=== PATIENT | female | born 1955 | race Caucasian/White ===

== ENCOUNTER 2017-02-15 14:45 | Inpatient (IN) | payer BC ==
--- NOTE | ~2017-02-15 | HP ---
History And Physical [id number] [place]. [address] NAME: KAYCE WILLIAM : 51 STATUS : DIS IN PAT#: [id number] AGE: 62 ADM/REG DATE : 02/15/17 MR#: [id number] REPORT SERV DATE: 02/17/17 DICTATED BY: NERY MORRISON JR. DATE: 02/15/17 REPORT STATUS : Draft TRANSCRIBED BY: ROSSI DATE: 02/15/17 DATE OF ADMISSION: 02/15/2017 CHIEF COMPLAINT: Chest pain and shortness of breath. HISTORY OF PRESENT ILLNESS: Kayce is a 62-year-old white female smoker with paroxysmal atrial fibrillation and hypertension. She developed neck and jaw pain this morning. She developed precordial chest discomfort this afternoon that was quite severe while in her car and she actually called EMS from her car. In the field, a 12-lead EKG was done showing inferior posterior myocardial infarction, consistent with STEMI and code STEMI protocol was implemented. On arrival, the patient had 8/10 chest pain, respirations at 30 times a minute, and appeared in acute distress. PAST MEDICAL HISTORY: Includes hypertension and paroxysmal atrial fibrillation. She does not take anticoagulation for this. She believes her last episode was 30 days ago. She denies diabetes, prior TIA, or stroke. She denies renal insufficiency. ALLERGIES: DENIED. CURRENT MEDICATIONS: Include atenolol and lisinopril. SOCIAL HISTORY: The patient is a pack-a-day smoker. She denies alcohol or recreational drug abuse. FAMILY HISTORY: Significant for midlife vascular events in parents. REVIEW OF SYSTEMS: Limited secondary to clinical state. She denies fever chills, bleeding diathesis, changes in bowel or bladder habits. Remainder as in HPI or negative. PHYSICAL EXAMINATION: VITAL SIGNS: Blood pressure is 122/76, heart rate 72, and respirations 30. GENERAL: Middle-aged female who is in acute distress with acute anxiety and tachypnea. HEENT: Anicteric, no scleral injection, no oral lesions. NECK: No JVD, supple, no bruits. LUNGS: Clear to auscultation. No hyperexpansion. CARDIOVASCULAR: Regular rate and rhythm with no murmur, rub or gallop. ABDOMEN: Soft, nontender. Normoactive bowel sounds, no hepatosplenomegaly. EXTREMITIES: No clubbing, cyanosis or edema. SKIN: No visible rashes. NEURO/PSY: Normal affect, alert and oriented x 3. MEDICAL DECISION MAKIN. Acute inferior posterior LA. The patient will be brought to the cardiac catheterization laboratory for emergency coronary angiography and percutaneous intervention. The risks were verbalized and accepted, this is an emergency procedure. History And Physical [address] [address] NAME: KAYCE WILLIAM : 51 STATUS : DIS IN PAT#: [id number] AGE: 62 ADM/REG DATE : 02/15/17 MR#: [id number] REPORT SERV DATE: 02/17/17 DICTATED BY: NERY MORRISON JR. DATE: 02/15/17 REPORT STATUS : Draft TRANSCRIBED BY: ROSSI DATE: 02/15/17 2. Paroxysmal atrial fibrillation. The patient will need stroke prophylaxis. This will be instituted postoperatively. 3. Smoking cessation counseling was initiated. 4. Mixed hyperlipidemia. We will begin intensive statin therapy. 5. Hypertension. We will adjust medicines as needed during the hospital stay. IBRAHIMA/ROSSI Nery Morrison Jr., M.D. / [id number] CC: Marci Valero Jr., M.D.
[2017-02-15 15:46] LABS: BASOPHILS 0.4 %; BASOPHILS ABSOLUTE 0.04 10/3/uL (0.0-0.16); EOSINOPHILS 0.9 %; EOSINOPHILS ABSOLUTE 0.08 10/3/uL (0.0-0.53); HEMATOCRIT 36.1 % (36.0-48.0); HEMOGLOBIN 12.5 g/dL (12.0-16.0); IMMATURE GRANULOCYTES 0.3 %; IMMATURE GRANULOCYTES ABSOLUTE 0.03 10/3/uL (0.0-0.11); LYMPHOCYTES 27.8 %; LYMPHOCYTES ABSOLUTE 2.62 10/3/uL (0.67-4.30); MEAN CORPUS HGB CONC 34.6 g/dL (32.0-36.0); MEAN CORPUSCULAR HEMOGLOB 34.4 pg (26.0-34.0); MEAN CORPUSCULAR VOLUME 99.4 fL (80-100); MEAN PLATELET VOLUME 9.8 fL (9.2-13.0); MONOCYTES 5.7 %; MONOCYTES ABSOLUTE 0.54 10/3/uL (0.21-1.20); NEUTROPHILS 64.9 %; PLATELET COUNT 334 10/3/uL (150-400); RBC DISTRIBUTION WIDTH 13.4 % (12.0-16.0); RED CELL COUNT 3.63 10/6/uL (4.0-5.6); WHITE BLOOD CELLS 9.4 10/3/uL (4.5-10.5)
[2017-02-15 15:47] LABS: MANUAL DIFF NO %
[2017-02-15 15:52] LABS: INTERNATIONAL NORMAL RATI 1.2 UNITS (-); PROTIME (NOT ORD) 15.4 SEC (12.0-14.5)
[2017-02-15 16:00] LABS: BUN (BLOOD UREA NITROGEN) 21 MG/DL (6-23); CALCIUM, SERUM 7.9 MG/DL (8.5-10.4); CHEST PAIN PROFILE TAT 0 Hrs 24 Mins; CHLORIDE, SERUM 111 MMOL/L (96-112); CO2 (CARBON DIOXIDE) 20 MMOL/L (24-34); GFR AFRICAN AMERICAN 78 ML/MIN (>=60); GFR NON AFRICAN AMERICAN 68 ML/MIN (>=60); GLUCOSE, SERUM 107 MG/DL (60-99); POTASSIUM, SERUM 3.8 MMOL/L (3.5-5.3); SODIUM, SERUM 142 MMOL/L (135-148); TROPONIN I 0.03 NG/ML (<0.05)
[2017-02-15 16:07] LABS: PARTIAL THROMBO TIME > 150.0 SEC (22.5-37.2)
[2017-02-15 17:40] LABS: CPK 63 U/L (0-200)
[2017-02-15 17:41] LABS: CK-MB 1.9 NG/ML
[2017-02-15 17:42] LABS: TROPONIN I 0.27 NG/ML (<0.05)
[2017-02-15] MEDS ORDERED: ATEN25 PO (21:10)
[2017-02-15] MEDS ORDERED: AT25 PO (21:11)
[2017-02-15] MEDS ORDERED: ASAB PO (21:12)
[2017-02-15] MEDS ORDERED: PRIN20 PO (21:12)
[2017-02-16 00:10] LABS: CK-MB 19.6 NG/ML
[2017-02-16 00:12] LABS: CKMB INDEX (NOT ORD) 10.8
[2017-02-16 05:39] LABS: BASOPHILS 0.3 %; BASOPHILS ABSOLUTE 0.02 10/3/uL (0.0-0.16); EOSINOPHILS 2.7 %; HEMATOCRIT 34.1 % (36.0-48.0); HEMOGLOBIN 11.4 g/dL (12.0-16.0); IMMATURE GRANULOCYTES 0.3 %; IMMATURE GRANULOCYTES ABSOLUTE 0.02 10/3/uL (0.0-0.11); LYMPHOCYTES 32.5 %; LYMPHOCYTES ABSOLUTE 2.39 10/3/uL (0.67-4.30); MEAN CORPUS HGB CONC 33.4 g/dL (32.0-36.0); MEAN CORPUSCULAR HEMOGLOB 33.7 pg (26.0-34.0); MEAN CORPUSCULAR VOLUME 100.9 fL (80-100); MEAN PLATELET VOLUME 9.2 fL (9.2-13.0); MONOCYTES 8.8 %; MONOCYTES ABSOLUTE 0.65 10/3/uL (0.21-1.20); NEUTROPHILS 55.4 %; NEUTROPHILS ABSOLUTE 4.08 10/3/uL (2.02-8.40); PLATELET COUNT 278 10/3/uL (150-400); RBC DISTRIBUTION WIDTH 13.8 % (12.0-16.0); RED CELL COUNT 3.38 10/6/uL (4.0-5.6); WHITE BLOOD CELLS 7.4 10/3/uL (4.5-10.5)
[2017-02-16 05:42] LABS: MANUAL DIFF NO %
[2017-02-16 05:45] LABS: INTERNATIONAL NORMAL RATI 1.2 UNITS (-); PROTIME (NOT ORD) 14.9 SEC (12.0-14.5)
[2017-02-16 05:54] LABS: BUN (BLOOD UREA NITROGEN) 18 MG/DL (6-23); CALCIUM, SERUM 7.9 MG/DL (8.5-10.4); CHLORIDE, SERUM 112 MMOL/L (96-112); CHOLESTEROL 158 MG/DL (< 200); CO2 (CARBON DIOXIDE) 25 MMOL/L (24-34); CREATININE 0.86 MG/DL (0.55-1.02); GFR AFRICAN AMERICAN 83 ML/MIN (>=60); GFR NON AFRICAN AMERICAN 71 ML/MIN (>=60); GLUCOSE, SERUM 100 MG/DL (60-99); HDL CHOLESTEROL 53 MG/DL (> 49); LDL CHOLESTEROL 82 MG/DL (< 130); NON-HDL CHOLESTEROL 105 MG/DL (< 160); POTASSIUM, SERUM 4.1 MMOL/L (3.5-5.3); SODIUM, SERUM 143 MMOL/L (135-148); TRIGLYCERIDE 118 MG/DL (< 150)
[2017-02-16 08:09] LABS: CK-MB 25.1 NG/ML; CKMB INDEX (NOT ORD) 10.2; CPK 245 U/L (0-200)
[2017-02-16 17:34] LABS: CKMB INDEX (NOT ORD) 6.7
[2017-02-17 05:28] LABS: INTERNATIONAL NORMAL RATI 1.1 UNITS (-); PROTIME (NOT ORD) 14.2 SEC (12.0-14.5)
[2017-02-17 05:29] LABS: BASOPHILS 0.7 %; BASOPHILS ABSOLUTE 0.04 10/3/uL (0.0-0.16); EOSINOPHILS 5.1 %; EOSINOPHILS ABSOLUTE 0.28 10/3/uL (0.0-0.53); HEMATOCRIT 35.3 % (36.0-48.0); HEMOGLOBIN 11.9 g/dL (12.0-16.0); IMMATURE GRANULOCYTES 0.2 %; IMMATURE GRANULOCYTES ABSOLUTE 0.01 10/3/uL (0.0-0.11); LYMPHOCYTES 46.2 %; LYMPHOCYTES ABSOLUTE 2.56 10/3/uL (0.67-4.30); MEAN CORPUS HGB CONC 33.7 g/dL (32.0-36.0); MEAN CORPUSCULAR HEMOGLOB 34.1 pg (26.0-34.0); MEAN CORPUSCULAR VOLUME 101.1 fL (80-100); MEAN PLATELET VOLUME 9.4 fL (9.2-13.0); MONOCYTES 7.9 %; MONOCYTES ABSOLUTE 0.44 10/3/uL (0.21-1.20); NEUTROPHILS 39.9 %; NEUTROPHILS ABSOLUTE 2.21 10/3/uL (2.02-8.40); PLATELET COUNT 273 10/3/uL (150-400); RBC DISTRIBUTION WIDTH 13.7 % (12.0-16.0); RED CELL COUNT 3.49 10/6/uL (4.0-5.6); WHITE BLOOD CELLS 5.5 10/3/uL (4.5-10.5)
[2017-02-17 05:30] LABS: MANUAL DIFF NO %
[2017-02-17 05:33] LABS: CALCIUM, SERUM 8.5 MG/DL (8.5-10.4); CHLORIDE, SERUM 111 MMOL/L (96-112); CO2 (CARBON DIOXIDE) 24 MMOL/L (24-34); CREATININE 0.69 MG/DL (0.55-1.02); GFR AFRICAN AMERICAN 107 ML/MIN (>=60); GFR NON AFRICAN AMERICAN 92 ML/MIN (>=60); GLUCOSE, SERUM 92 MG/DL (60-99); POTASSIUM, SERUM 4.3 MMOL/L (3.5-5.3); SODIUM, SERUM 142 MMOL/L (135-148)
[2017-02-17 05:35] LABS: BUN (BLOOD UREA NITROGEN) 10 MG/DL (6-23)
[2017-02-17] MEDS ORDERED: PRIN5 PO (11:14)
[2017-02-17] MEDS ORDERED: LIPITOR40 (11:15)
[2017-02-17] MEDS ORDERED: PLAVIX PO (11:16)
[2017-02-17] MEDS ORDERED: LIPITOR40 PO (11:16)
[2017-02-17] MEDS ORDERED: LOP25 PO (11:33)
[2017-02-17] MEDS ORDERED: C5 PO (11:35)
== END 2017-02-17 13:53 | disposition home or self-care (01) | DRG 247 ==
LOC: SSU2 14:45 → CCU 16:15
PROVIDERS: Internal Medicine Cardiovascular Disease
PROC: 027034Z Dilation of Coronary Artery, One Artery with Drug-eluting Intraluminal Device, Percutaneous Approach (ICD-10-PCS; principal; 2017-02-15)
PROC: 4A023N7 Measurement of Cardiac Sampling and Pressure, Left Heart, Percutaneous Approach (ICD-10-PCS; 2017-02-15)
PROC: B2151ZZ Fluoroscopy of Left Heart using Low Osmolar Contrast (ICD-10-PCS; 2017-02-15)
PROC: B2111ZZ Fluoroscopy of Multiple Coronary Arteries using Low Osmolar Contrast (ICD-10-PCS; 2017-02-15)
DX: I21.11 ST elevation (STEMI) myocardial infarction involving right coronary artery (principal); I10 Essential (primary) hypertension; I25.10 Atherosclerotic heart disease of native coronary artery without angina pectoris; F17.210 Nicotine dependence, cigarettes, uncomplicated; E78.2 Mixed hyperlipidemia; I48.0 Paroxysmal atrial fibrillation; F10.21 Alcohol dependence, in remission; Z79.01 Long term (current) use of anticoagulants
CPT/HCPCS: 71010; 80048; 80061; 82550; 82553; 82565; 83735; 84484; 85025; 85610; 85730; 87641; 93005; 93458; 99152; 99153; A9270-GY; C1725; C1769; C1874; C1887; C1894; C8929; C9606; J0282; J0583; J1652; J2250; J3010; Q9957; Q9967